=== PATIENT | male | born 1985 | race Caucasian/White ===

== ENCOUNTER 2021-06-24 11:15 | Emergency (ER) | payer BC, SELFPAY ==
[2021-06-24 11:40] VITALS: BP 152/88; PULSE 101; RESP 20; TEMP 36.6; O2SAT 98
--- NOTE | 2021-06-24 12:34 | ED.URI ---
HPI - URI/Sore Throat General Chief Complaint: Upper Respiratory Infection Stated Complaint: Throat and Facial Swelling and Pain Source: patient, RN notes reviewed and old records reviewed Mode of arrival: ambulatory Limitations: no limitations History of Present Illness HPI Narrative: 35-year-old male who presents to [facility] with complaints of sore throat and swelling to the back of his jaw since with increase pain to jaw area noted on Thursday with eating and drinking. Patient states that he has noticed increased swelling to the posterior jaw area and now pain is going into his left ear. He denies any fevers, cough, no shortness of breath or inability to swallow. States no dental pain or any known dental caries. MD elicited complaint: sore throat Treatments prior to arrival: ibuprofen Related Data Allergies Allergy/AdvReac Type Severity Reaction Status Date / Time No Known Allergies Allergy Verified 06/24/21 12:11 Review of Systems Review of Systems: CONSTITUTIONAL: Denies fever, chills, or sweats. EYES: Denies visual changes, redness, or discharge. ENT: Denies rhinorrhea, congestion,positive for sore throat, left otalgia, swelling along posterior jaw line CARDIOVASCULAR: Denies chest pain, palpitations, or edema. RESPIRATORY: Denies cough or dyspnea. GASTROINTESTINAL: Denies abdominal pain, nausea, vomiting, or diarrhea. GENITOURINARY: Denies dysuria or hematuria. SKIN: Denies rash or itching. MUSCULOSKELETAL: Denies back pain, joint pain, or myalgia. NEUROLOGIC: Denies headache, numbness, or weakness. PSYCHIATRIC: Denies anxiety or depression. All systems reviewed & are unremarkable except as noted in HPI and below PMFSH Past Medical History Medical History (Updated 06/25/21 @ 00:53 by Simona Hawthorne NP) Obesity Surgical History Surgical History (Updated 06/25/21 @ 00:46 by Simona Hawthorne NP) No history of previous surgery Social History Social History (Updated 06/25/21 @ 00:47 by Simona Hawthorne NP) Smoking status: Never smoker Alcohol intake: current Alcohol use details: social Substance use: never Living arrangements: with family Gender identity (if verbalized by the patient): Male Comments At time of signature, agree with nursing past medical, surgical, social and family history. There is no relevant family history pertinent to the presenting complaint Exam Narrative: GENERAL: Well-appearing, well-nourished, obese and in no acute distress. HEAD: Normocephalic, atraumatic. EYES: PERRLA and EOMI. ENT: Nares clear, no rhinorrhea or epistaxis. Mucous membranes moist.TM's normal with good light reflex, throat red with no lesions or exudates, tonsils enlarged red and swollen no trismus noted or Tejinder angina. No obvious dental caries or an NECK: Supple.Lymphadenopathy CHEST: Clear to auscultation. No respiratory distress.SAO2 98% on room ar no cough noted HEART: Regular rate and rhythm. No murmur heard. Normal peripheral pulses. ABDOMEN: Soft, nontender, nondistended, normal active bowel sounds. EXTREMITIES: Normal range of motion. No edema. SKIN: Warm, dry, no rash. NEURO: No focal deficits. Alert and oriented x3. Course Course Level of Care: Express Care Visit Vital Signs Vital signs: Vital Signs Temperature 36.6 C 06/24/21 11:40 Pulse Rate 101 H 06/24/21 11:40 Respiratory Rate 20 06/24/21 11:40 Blood Pressure 152/88 H 06/24/21 11:40 Pulse Oximetry 98 06/24/21 11:40 Temperature 36.6 C 06/24/21 11:40 Pulse Rate 101 H 06/24/21 11:40 Respiratory Rate 20 06/24/21 11:40 Blood Pressure 152/88 H 06/24/21 11:40 Pulse Oximetry 98 06/24/21 11:40 MDM - URI/Sore Throat Differential Diagnosis Differential diagnosis: Likely upper respiratory infection, viral infection, pharyngitis and other (strep pharyngitis, tonsillitis) Medical Records Attestation: I reviewed the patient's medical records. Lab Data Attestation: I reviewed the patien
== END 2021-06-24 11:58 | disposition home or self-care (01) ==
PROVIDERS: Emergency Provider Registered Nurse; PCP Family Medicine
DX: R59.1 Generalized enlarged lymph nodes (principal); J03.90 Acute tonsillitis, unspecified; E66.9 Obesity, unspecified; Z68.43 Body mass index [BMI] 50.0-59.9, adult
CPT/HCPCS: 87081; 87880; 99203; G0463